=== PATIENT | male | born 1965 | race African-American/Black ===

== ENCOUNTER 2024-02-14 09:02 | Emergency (ER) | payer OTHER, MEDICAID, SELFPAY ==
[2024-02-14 09:19] VITALS: BP 147/101; PULSE 125; RESP 18; TEMP 37.2; O2SAT 98; BMI 21.9
[2024-02-14 09:38] VITALS: BP 147/97; PULSE 101; RESP 18; TEMP 37.2; O2SAT 98
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
--- NOTE | 2024-02-14 10:05 | PC.NURSE ---
[facility] CONTACTED, SPOKE WITH ADDIE. INFO GIVEN. ADDIE SPEAKING TO KIM PERKINS AT THIS TIME
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
[2024-02-14] MEDS: MORPHINE SULF INJ 10 MG/ML VIAL 4 MG IVP ×2 (10:57→12:20)
--- NOTE | 2024-02-14 11:44 | PC.NURSE ---
ADDIE FROM [facility] RETURNED CALL WITH POSITIVE ACCEPTANCE BY DR IBRAHIMA RAM. ER TO ER. NURSE TO NURSE REPORT [phone]
--- NOTE | 2024-02-14 11:56 | PC.NURSE ---
REPORT CALLED TO [facility]
[2024-02-14 12:25] VITALS: BP 138/80; PULSE 66; RESP 20; TEMP 36.6; O2SAT 94
== END 2024-02-14 14:10 | disposition short-term general hospital (02) ==
PROVIDERS: Emergency Provider Emergency Medicine; PCP Internal Medicine
DX: S05.32XA Ocular laceration without prolapse or loss of intraocular tissue, left eye, initial encounter (principal); S01.111A Laceration without foreign body of right eyelid and periocular area, initial encounter; Y04.0XXA Assault by unarmed brawl or fight, initial encounter; Y92.148 Other place in prison as the place of occurrence of the external cause; Z94.7 Corneal transplant status
CPT/HCPCS: 12014; 96374; 96376; 99291; J2270